=== PATIENT | female | born 2000 | race Two or more races ===

== ENCOUNTER 2024-08-07 12:25 | Inpatient (IN) | payer MEDICAID, OTHER ==
[~2024-08-07] VITALS: Ht 149.9 cm; Wt 45.0 kg
--- NOTE | 2024-08-07 12:41 | ED.PDOC ---
History of Present Illness HPI Comments 23y F who presents to the ED for chief complaint of palpitations. Pt states she has been having palpitations this AM after episode of nausea and vomiting. Pt states she has been having nausea, vomiting, fever and chills for the past 1 week. Pt states she checked her heart rate at home and states it was in the 160's. Pt in the ED, has heart rate of 143 with all other vitals in normal range. Pt otherwise denies any other symptoms at this time. Patient does not use any drugs. No known thyroid disease history. Patient was states that her brother has a history of an enlarged heart and her father at the age of 46 due to a heart attack. 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 Hx Family History Family History: Unknown Social History Smoker: Non-Smoker Alcohol: Denies ETOH Use Drugs: Marijuana Lives In: Home Constitutional: reports: chills, fever; denies: diaphoresis, fatigue, malaise, sweats, weakness, others EENTM: denies: blurred vision, double vision, ear bleeding, ear discharge, ear drainage, ear pain, ear ringing, eye pain, eye redness, hearing loss, mouth pain, mouth swelling, nasal discharge, nose bleeding, nose congestion, nose pain, photophobia, tearing, throat pain, throat swelling, voice changes, others Respiratory: denies: cough, hemoptysis, orthopnea, SOB at rest, shortness of breath, SOB with excertion, stridor, wheezing, others Cardiovascular: reports: palpitations; denies: chest pain, dizzy spells, diaphoresis, Dyspnea on exertion, edema, irregular heart beat, left arm pain, lightheadedness, PND, syncope, others Gastrointestinal: reports: nausea, vomiting; denies: abdomen distended, abdominal pain, blood streaked bowels, constipated, diarrhea, dysphagia, difficulty swallowing, hematemesis, melena, poor appetite, poor fluid intake, rectal bleeding, rectal pain, others Genitourinary: denies: abnormal vagina bleeding, burning, dyspareunia, dysuria, flank pain, frequency, hematuria, incontinence, pain, , vagina discharge, urgency, others Neurological: denies: dizziness, fainting, headache, left sided numbness, left sided weakness, numbness, paresthesia, pre-existing deficit, right sided n umbness, right sided weakness, seizure, speech problems, tingling, tremors, weakness, others Musculoskeletal: denies: back pain, gout, joint pain, joint swelling, muscle pain, muscle stiffness, neck pain, others Integumetry: denies: bruises, change in color, change in hair/nails, dryness, laceration, lesions, lumps, rash, wounds, others Allergic/Immunocompromised: denies: Difficulty Healing, Frequent Infections, Hives, Itching, others Hematologic/Lymphatic: denies: anemia, blood clots, easy bleeding, easy bruising, swollen glands, others Endocrine: denies: excessive hunger, excessive sweating, excessive thirst, excessive urination, flushing, intolerance to cold, intolerance to heat, unexplained weight gain, unexplained weight loss, others Psychiatric: denies: anxiety, bipolar disorder, depression, hopeless, panic disorder, schizophrenia, sleepless, suicidal, others All Other Systems: Reviewed and Negative Physical Exam General Appearance: No Apparent Distress, Normal HEENT: Normal ENT Inspection, Pharynx Normal, TMs Normal Neck: Full Range of Motion, Non-Tender, Normal, Normal Inspection Respiratory: Chest Non-Tender, Lungs Clear, No Accessory Muscle Use, No Respiratory Distress, Normal Breath Sounds Cardiovascular: No Edema, No Murmur, No Gallop, Normal Peripheral Pulses, Tachycardia Breast Exam: Deferred Gastrointestinal: No Organomegaly, Non Tender, No Pulsatile Mass, Normal Bowel Sounds, Soft Genitalia: Deferred Pelvic: Deferred Rectal: Deferred Extremities: No calf tenderness, Normal capillary refill, Normal inspection, Normal range of motion, Non-tender, No pedal edema Musculoskeletal : Apperance: Normal Neurologic: Alert, mortar carrier II-XII nml as Tested, No Motor Deficits, Normal Affect, Normal Mood, No Sensory Deficits Cerebellar Function: NOT DONE Reflexes: NOT DONE Skin: Dry, Normal Color, Warm Lymphatic: No Adenopathy Was a procedure done? Was a procedure done?: No EKG EKG : Pulse Rate (adult): 129 [place]: Normal Cardiac Rhythm: ST Block: None Hypertrophy: None ST: Normal Comments Evidence of diffuse ischemia across all territories with mild ST depressions Differential Dx Considerations may include: Myocarditis, pericardial effusion, tamponade, ACS, PE, pericarditis, anxiety X-Ray, Labs, Meds, VS Vital Signs Date Time Temp Pulse Resp B/P (MAP) Pulse Ox O2 Delivery O2 Flow Rate FiO2 08/07/24 18:43 98.1 126 16 120/78 (92) 96 98.1 08/07/24 18:42 98.1 126 16 121/83 (96) 96 98.1 08/07/24 18:30 133 08/07/24 16:18 97.1 136 16 121/83 (96) 96 97.1 08/07/24 13:28 130 08/07/24 13:24 129 08/07/24 12:46 99.0 20 20 118/83 (95) 99 Lab Test 08/07/24 15:54 08/07/24 13:52 08/07/24 12:59 Range/Units Sodium Level 138 138 136-145 mmol/L Potassium Level 3.4 L 3.5 3.5-5.1 mmol/L Chloride Level 102 103 98-107 mmol/L Carbon Dioxide Level 17 L 19 L 20-31 mmol/L Anion Gap 19 H 16 H 5-15 Blood Urea Nitrogen 8 L 8 L 9-23 mg/dL Creatinine 0.76 0.88 0.550-1.02 mg/dL Glomerular Filtration Rate Calc 114 95 >90 mL/min BUN/Creatinine Ratio 10.5 9.1 L 10.0-20.0 Serum Glucose 69 L 93 74-106 mg/dL Lactic Acid Level 1.0 2.3 *H 0.4-2.0 mmol/L Calcium Level 10.6 H 10.8 H 8.7-10.4 mg/dL Troponin I High Sensitivity 7 6 5 </=34 ng/L White Blood Count 7.8 4.4-10.8 10^3/uL Red Blood Count 5.31 H 4.0-5.20 10^6/uL Hemoglobin 16.6 H 12.2-16.2 g/dL Hematocrit 48.7 H 36.0-46.0 % Mean Corpuscular Volume 91.7 80.0-100.0 fL Mean Corpuscular Hemoglobin 31.2 28.0-32.0 pg Mean Corpuscular Hemoglobin Concent 34.1 32.0-36.0 g/dL Red Cell Distribution Width 12.8 11.8-14.3 % Platelet Count 283 140-450 10^3/uL Mean Platelet Volume 8.2 6.9-10.8 fL Neutrophils (%) (Auto) 61.7 37.0-80.0 % Lymphocytes (%) (Auto) 28.7 10.0-50.0 % Monocytes (%) (Auto) 7.7 0.0-12.0 % Eosinophils (%) (Auto) 1.5 0.0-7.0 % Basophils (%) (Auto) 0.4 0.0-2.0 % Neutrophils # (Auto) 4.8 1.6-8.6 10 ^3/uL Lymphocytes # (Auto) 2.2 0.4-5.4 10 ^3/uL Monocytes # (Auto) 0.6 0-1.3 10 ^3/uL Eosinophils # (Auto) 0.1 0-0.8 10 ^3/uL Basophils # (Auto) 0 0-0.2 10 ^3/uL Nucleated Red Blood Cells 0.0 % D-Dimer, Quantitative < 0.19 0.0-0.49 mg/L FEU Total Bilirubin 1.2 H 0.2-1.0 mg/dL Aspartate Amino Transferase (AST) 21 13-40 U/L Alanine Aminotransferase (ALT) 13 7-40 U/L Alkaline Phosphatase 85 46-116 U/L C-Reactive Protein High Sensitivity 0.20 <1.0 mg/dL B-Type Natriuretic Peptide 6.01 0-100 pg/mL Total Protein 8.5 H 5.7-8.2 g/dL Albumin 5.1 H 3.2-4.8 g/dL Thyroid Stimulating Hormone (TSH) 0.69 0.55-4.78 uIU/mL Current Medications Medications (Trade) Dose Ordered Sig/Alonzo Route Start Time Stop Time Status Last Admin Potassium Chloride (Klor-Con Tablet) 20 meq ONCE ONCE PO 08/07/24 18:15 08/07/24 18:16 DC 08/07/24 18:[address] [address] Ph: [phone] DIAGNOSTIC IMAGING Diagnostic Imaging Report : [id number] Signed PATIENT: PEPE PALACIO ACCT: [id number] UNIT: [id number] : 2000 LOC: ER ROOM / BED: / AGE / SEX: 23 / F ADM STATUS: REG ER SERVICE 1230 ORDERING PHYSICIAN: ANA PAULA TEE MD PROCEDURE(s): CXRP - CHEST PORTABLE REASON: PALPATATIONS ORDER NUMBER(s): [id number], ACCESSION NUMBER(s): [id number] CHEST RADIOGRAPH Indication: PALPATATIONS Technique: Single frontal view of the chest was obtained Comparison: None FINDINGS: Lines and Tubes: None Lungs: No focal consolidation. Pleura: No effusion. No pneumothorax. Cardiomediastinal contours: Unremarkable Bones: No acute osseous abnormality. IMPRESSION: No acute cardiopulmonary disease. ATED BY: JUSTIN LANDERS MD DICTATED DATE/TIME: 08/07/24 1302 SIGNED BY: JUSTIN LANDERS MD SIGNED DATE/TIME: 08/07/24 1302 CC: X-Ray, Labs, Meds, VS Comment 23-year-old female with no pertinent medical history and without recent stimulant use here today with complaints of palpitations, nausea, and vomiting. Family history significant for father passing away at age 46 due to a heart attack and brother with an "enlarged heart. Vitals notable for persistent tachycardia to the 120s despite oral rehydration and IV saline. Physical exam with evidence of tachycardia but otherwise unremarkable. Labs overall reassuring with evidence of negative D-dimer and negative troponin and only mild hypokalemia and hypoglycemia which were treated with oral potassium supplementation and eating a snack. EKGs x3 with evidence of persistent tachycardia and evidence of diffuse ST depressions. Given this presentation, I have a concern for myocarditis or other cardiac process and, after discussion with the patient and her mother, decision was made to admit the patient for further evaluation and for an echo. Patient and mother in agreement with the plan. Images Reviewed?: Images reviewed and evaluated by me Time of 1ST Reevaluation: 13:10 Reevaluation 1ST: Unchanged Time of 2ND Reevaluation: 19:28 Reevaluation 2ND: Tachycardic to the 110s Patient Education/Counseling: Diagnosis, Treatment Family Education/Counseling: No Family Present Departure 1 Departure Time of Disposition: 19:28 Impression: Primary Impression: Palpitation Additional Impressions: Tachycardia Hypokalemia Hypoglycemia Disposition: ADMITTED INPATIENT Admit to: Tele Condition: Stable Critical Care Note Critical Care Time?: Yes (30 min-critical care time only) Stability Stability form required: No Heart Score Heart Score: Heart Score Response (Comments) Value History Slightly Suspicious 0 EKG Normal 0 Age <45 0 Risk Factors No known risk factors 0 Troponin Normal limit 0 Total 0 I personally scribed for ER ([email or web address]) on 08/07/24 at 13:24. Electronically submitted by Aroldo Blair ([email or web address]). TAVARES GONZALES MD Aug 07, 2024 12:41 ER Aug 07, 2024 13:24
--- NOTE | 2024-08-07 13:04 | DVH ---
CHEST RADIOGRAPH Indication: PALPATATIONS Technique: Single frontal view of the chest was obtained Comparison: None FINDINGS: Lines and Tubes: None Lungs: No focal consolidation. Pleura: No effusion. No pneumothorax. Cardiomediastinal contours: Unremarkable Bones: No acute osseous abnormality. IMPRESSION: No acute cardiopulmonary disease.
[2024-08-07 13:12] LABS: Basophils # (auto) 0 10 ^3/uL (0-0.2); Basophils % (auto) 0.4 % (0.0-2.0); Eosinophils # (auto) 0.1 10 ^3/uL (0-0.8); Eosinophils % (auto) 1.5 % (0.0-7.0); Hematocrit 48.7 % (36.0-46.0); Hemoglobin 16.6 g/dL (12.2-16.2); Lymphocytes # (auto) 2.2 10 ^3/uL (0.4-5.4); Lymphocytes % (auto) 28.7 % (10.0-50.0); Mean Corpuscular Hemoglobin 31.2 pg (28.0-32.0); Mean Corpuscular Hgb Conc. 34.1 g/dL (32.0-36.0); Mean Corpuscular Volume 91.7 fL (80.0-100.0); Monocytes # (auto) 0.6 10 ^3/uL (0-1.3); Monocytes % (auto) 7.7 % (0.0-12.0); Neutrophils # (auto) 4.8 10 ^3/uL (1.6-8.6); Neutrophils % (auto) 61.7 % (37.0-80.0); Platelet Count (auto) 283 10^3/uL (140-450); Red Blood Cells 5.31 10^6/uL (4.0-5.20); Red Cell Distribution Width 12.8 % (11.8-14.3); White Blood Cell 7.8 10^3/uL (4.4-10.8)
[2024-08-07 13:35] LABS: Alanine Aminotransferase 13 U/L (7-40); Alkaline Phosphatase 85 U/L (46-116); Anion Gap 16 (5-15); BUN/Creatinine Ratio 9.1 (10.0-20.0); Chloride 103 mmol/L (98-107); Glucose 93 mg/dL (74-106); Sodium 138 mmol/L (136-145)
[2024-08-07 13:36] LABS: Aspartate Aminotransferase 21 U/L (13-40)
[2024-08-07 13:37] LABS: Bilirubin, Total 1.2 mg/dL (0.2-1.0)
[2024-08-07 13:45] LABS: Lactic Acid w/Reflex 2.3 mmol/L (0.4-2.0)
[2024-08-07 13:47] LABS: Albumin 5.1 g/dL (3.2-4.8); Blood Urea Nitrogen 8 mg/dL (9-23); Calcium 10.8 mg/dL (8.7-10.4); Carbon Dioxide 19 mmol/L (20-31); Potassium 3.5 mmol/L (3.5-5.1); Total Protein 8.5 g/dL (5.7-8.2)
[2024-08-07 17:00] LABS: Anion Gap 19 (5-15); BUN/Creatinine Ratio 10.5 (10.0-20.0); Blood Urea Nitrogen 8 mg/dL (9-23); Calcium 10.6 mg/dL (8.7-10.4); Carbon Dioxide 17 mmol/L (20-31); Chloride 102 mmol/L (98-107); Glucose 69 mg/dL (74-106); Potassium 3.4 mmol/L (3.5-5.1); Sodium 138 mmol/L (136-145)
[2024-08-07] MEDS: POTASSIUM CHL 20 Meq TABLET PO ONE (18:38)
--- NOTE | 2024-08-07 18:51 | ECG ---
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
[2024-08-07] MEDS: SODIUM CHLORIDE 0.9% 1,000 ML IV ONE (19:30)
[2024-08-07 20:58] LABS: Magnesium 1.8 mg/dL (1.6-2.6)
[2024-08-07 21:00] LABS: Phosphorus 3.2 mg/dL (2.4-5.1)
[2024-08-07] MEDS ORDERED: ONDANSETRON HCL 4 MG/2 ML VIAL IV PRN (21:15)
[2024-08-07] MEDS ORDERED: ACETAMINOPHEN 325 MG TAB PO PRN (21:15)
[2024-08-07 21:53] LABS: Triglycerides 68 mg/dL (< 150)
[2024-08-07 21:54] LABS: Cholesterol 176 mg/dL (< 200); HDL Cholesterol 56 mg/dL (40-59)
[2024-08-07 21:57] LABS: LDL Cholesterol 109 mg/dL (< 100)
--- NOTE | 2024-08-07 22:17 | DVHHPRES ---
History of Present Illness Resident Creating Document: CORINNE CARDENAS History of Present Illness This is a 23-year-old female with no past medical history of relevance per patient. She does reports that from his that family they all were diabetic, his dad at the age of 46 due to a heart attack and his brother, who is 30 years old has a history of enlarged heart and hypertension. The patient presented to the ED due to palpitations that has been going on for the past week. The patient also reports nausea/vomiting, fever and chills. The patient states that these symptoms started 5 days ago along with the palpitations. Today patient has no symptoms but still has persistent sinus tachycardia. Patient states that she checked her heart rate at home and it was in the 140s. Patient does accept that her uncle had a stomach viral infection two weeks ago and she was in close contact with her. Patient denied chest pain, shortness of breath, abdominal pain, or any other associated symptoms. Upon admission, initial labs were grossly unremarkable except for mild hypokalemia at 3.4. Troponins were negative, BNP on normal range an EKG was showing sinus tachycardia in the 130s on three different EKGs. We ordered urine drug screen, flu/COVID test and additional test. Palpitation seems to be related to dehydration/vital infection but we will admit the patient to perform an echocardiogram based on strong family heart issues first-degree family members. Patient will be admitted for further assessment and management. Past Medical History None Per patient. Past Surgical History: None Family History: Other (Father due to heart attack at 46 years of age. 30-year-old Brother has a enlarged heart associated with hypertension) Family History Father due to heart attack at 46 years of age. 30-year-old Brother has a enlarged heart associated with hypertension Smoke: No ALCOHOL: none Drugs: Marijuana Lives: with Family Domestic Violence: Neg Review of Systems Constitutional: No: Fever, Chills, Sweats, Weakness, Malaise, Other Eyes: No: Pain, Vision change, Conjunctivae inflammation, Eyelid inflammation, Other, Redness ENT: No: Ear pain, Ear discharge, Nose pain, Nose discharge, Nose congestion, Mouth pain, Mouth swelling, Throat pain, Throat swelling, Other Respiratory: No: Cough, Dry, Shortness of breath, SOB with excertion, Wheezing, Hemoptysis, Pleuritic Pain, Sputum, Wheezing, Other Cardiovascular: Palpitations; No: Chest Pain, Orthopnea, Paroxysmal Noc. Dyspnea, Edema, Lt Headedness, Other Gastrointestinal: No: Nausea, Vomiting, Abdominal Pain, Diarrhea, Constipation, Melena, Hematochezia, Other Genitourinary: No Dysuria, No Frequency, No Incontinence, No Hematuria, No Retention, No Other Musculoskeletal: No: other, neck pain, shoulder pain, arm pain, back pain, hand pain, leg pain, foot pain Skin: No: Rash, Lesions, Jaundice, Bruising, Other Neurological: No: Weakness, Numbness, Incoordination, Change in speech, Confusion, Seizures, Other Allergies: Coded Allergies: NO KNOWN ALLERGIES (Unverified , 08/07/24) Exam Vital Signs Vital Signs Date Time Temp Pulse Resp B/P (MAP) Pulse Ox O2 Delivery O2 Flow Rate FiO2 08/07/24 18:43 98.1 126 16 120/78 (92) 96 98.1 General Appearance: Alert, Oriented X3, Cooperative, No acute distress HEENT: Atraumatic, PERRLA, EOMI, Mucous membr. moist/pink Respiratory: Clear to auscultation, Normal air movement Cardiovascular: Normal S1, Normal S2, No murmurs, Other (Persistent sinus tachycardia at 130s) Abdominal: Normal bowel sounds, Soft, No tenderness, No hepatospenomegaly, No masses Extremities: No clubbing, No cyanosis, No edema, Normal pulses, No tenderness/swelling Skin: No rashes, No breakdown, No significant lesion Neuro: Normal gait, Normal speech, Strength at 5/5 X4 ext, Normal tone, Sensation intact, Cranial nerves 3-12 NL, Reflexes 2+ Psych/Mental Status: Mental status NL, Mood NL Labs/Xrays Labs Test 08/07/24 15:54 08/07/24 12:59 Range/Units Sodium Level 138 136-145 mmol/L Potassium Level 3.4 L 3.5-5.1 mmol/L Chloride Level 102 98-107 mmol/L Carbon Dioxide Level 17 L 20-31 mmol/L Anion Gap 19 H 5-15 Blood Urea Nitrogen 8 L 9-23 mg/dL Creatinine 0.76 0.550-1.02 mg/dL Glomerular Filtration Rate Calc 114 >90 mL/min BUN/Creatinine Ratio 10.5 10.0-20.0 Serum Glucose 69 L 74-106 mg/dL Lactic Acid Level 1.0 0.4-2.0 mmol/L Calcium Level 10.6 H 8.7-10.4 mg/dL Phosphorus Level 3.2 2.4-5.1 mg/dL Magnesium Level 1.8 1.6-2.6 mg/dL Troponin I High Sensitivity 7 </=34 ng/L White Blood Count 7.8 4.4-10.8 10^3/uL Red Blood Count 5.31 H 4.0-5.20 10^6/uL Hemoglobin 16.6 H 12.2-16.2 g/dL Hematocrit 48.7 H 36.0-46.0 % Mean Corpuscular Volume 91.7 80.0-100.0 fL Mean Corpuscular Hemoglobin 31.2 28.0-32.0 pg Mean Corpuscular Hemoglobin Concent 34.1 32.0-36.0 g/dL Red Cell Distribution Width 12.8 11.8-14.3 % Platelet Count 283 140-450 10^3/uL Mean Platelet Volume 8.2 6.9-10.8 fL Neutrophils (%) (Auto) 61.7 37.0-80.0 % Lymphocytes (%) (Auto) 28.7 10.0-50.0 % Monocytes (%) (Auto) 7.7 0.0-12.0 % Eosinophils (%) (Auto) 1.5 0.0-7.0 % Basophils (%) (Auto) 0.4 0.0-2.0 % Neutrophils # (Auto) 4.8 1.6-8.6 10 ^3/uL Lymphocytes # (Auto) 2.2 0.4-5.4 10 ^3/uL Monocytes # (Auto) 0.6 0-1.3 10 ^3/uL Eosinophils # (Auto) 0.1 0-0.8 10 ^3/uL Basophils # (Auto) 0 0-0.2 10 ^3/uL Nucleated Red Blood Cells 0.0 % D-Dimer, Quantitative < 0.19 0.0-0.49 mg/L FEU Total Bilirubin 1.2 H 0.2-1.0 mg/dL Aspartate Amino Transferase (AST) 21 13-40 U/L Alanine Aminotransferase (ALT) 13 7-40 U/L Alkaline Phosphatase 85 46-116 U/L C-Reactive Protein High Sensitivity 0.20 <1.0 mg/dL B-Type Natriuretic Peptide 6.01 0-100 pg/mL Total Protein 8.5 H 5.7-8.2 g/dL Albumin 5.1 H 3.2-4.8 g/dL Thyroid Stimulating Hormone (TSH) 0.69 0.55-4.78 uIU/mL Assessment/Plan Assessment/Plan Assessment/Plan Acute palpitations/Sinus tachycardia likely in the setting of viral illness/dehydration R/O structural heart abnormalities R/O myocarditis? -Patient has strong family history of heart disease. Dad at 46 y/o due to ID, Brother (30 y/o) has dilated cardiomyopathy with HTN. -EKG showed sinus tachycardia in 3 different EKGs with No ST segment elevation. -Trops came back negative -BNP is 6.01 -Chest x ray was grossly unremarkable no signs of consolidations or pulm vasc congestion -Ordered UDS -Ordered Echocardiogram -Consider consulting Cardiology for further assessment of possible etiology if patient persist on sinus tachy despite of fluid therapy. Possible Viral gastroenteritis -Patient with persistent Nausea/vomit and fever. Last episode 1 day ago -Start IV fluids at 75cc/hr -Zofran IV PRN Mild hypokalemia -Potassium 3.4, 20 mEq was given Goals discussed with the patient and mother at bedside, FULL CODE Plan discussed with Dr. Limon Plan discussed with: Patient My Orders Orders - CORINNE CARDENAS Procedure Category Date Status Time Free T4 (Free LAB 08/07/24 Logged Thyroxine) 20:59 Drug Screen LAB 08/07/24 Logged 20:59 Urinalysis LAB 08/07/24 Logged 20:59 Admit ADMIT 08/07/24 Transmitted 21:01 Code Status CODE 08/07/24 Transmitted 21:01 Vital Signs SAAD 08/07/24 In Process 21:01 Review Orders With SAAD 08/07/24 In Process Adm. 21:01 Regular Diet DIET 08/08/24 Transmitted Breakfast Acetaminophen Tablet PHA 08/07/24 Logged (Tylenol Tablet) 21:15 Notify Of Changes SAAD 08/07/24 In Process From Base 21:01 Advance Directive SAAD 08/07/24 In Process 21:01 Echo 2d Mode Cardiac US 1/8/25 Logged DOP 21:01 Lipid Panel LAB 08/07/24 Logged 21:01 Patient Condition ORDERS 08/07/24 Transmitted 21:01 Allergies SAAD 08/07/24 In Process 21:01 Ondansetron Hcl PHA 08/07/24 Logged (Zofran) 21:15 Ambulate Every 4hours SAAD 08/07/24 In Process 21:01 Hemoglobin A1c LAB 08/07/24 Logged 21:01 Date of Service: Aug 07, 2024 Billing Provider: WALTER LIMON MD Common Visit Codes: [id number] INP/OBS CARE (HIGH) CORINNE CARDENAS RESIDENT Aug 07, 2024 22:16 WALTER LIMON MD Aug 08, 2024 17:45
[2024-08-08 00:07] VITALS: BP 130/75; PULSE 104; RESP 18; TEMP 97.5; O2SAT 97
[2024-08-08 00:20] VITALS: RESP 18; O2SAT 98
[2024-08-08] MEDS: SODIUM CHLORIDE 0.9% 1,000 ML IV ONE (00:42)
[2024-08-08 07:39] LABS: Urine Amorphous Crystal FEW /hpf (None Seen); Urine Bacteria FEW /hpf (None Seen); Urine Blood 1+ /uL (Negative); Urine Color Yellow (Yellow); Urine Mucus FEW (None Seen); Urine Protein, UAD 2+ (Negative); Urine Specific Gravity 1.032 (1.001-1.035); Urine Squamous Epithelial Cell FEW /hpf (<5); Urine Urobilinogen 3 mg/dL (Negative); Urine WBC 4 /hpf (0 - 5); Urine pH 6.5 (5.0-9.0)
[2024-08-08 07:42] LABS: Urine Clarity Hazy (Clear)
[2024-08-08 07:50] LABS: Amphetamine Screen, Urine Neg (NEGATIVE); Barbiturate Scree,Urine Neg (NEGATIVE); Benzodiazephine Screen, Urine Neg (NEGATIVE); Cannabinoid Screen, Urine Pos (NEGATIVE); Cocaine Screen, Urine Neg (NEGATIVE); Opiate Scree,Urine Neg (NEGATIVE); Phencyclidine Screen, Urine Neg (NEGATIVE)
[2024-08-08 08:46] VITALS: BP 117/68; PULSE 90; RESP 16; TEMP 99.3; O2SAT 97
[2024-08-08 11:32] LABS: Rapid Influenza A Negative (Negative); Rapid Influenza B Negative (Negative)
[2024-08-08 11:33] LABS: COVID19 ANTIGEN SOFIA FIA NEGATIVE (NEGATIVE)
[2024-08-08 12:44] VITALS: BP 111/70; PULSE 102; RESP 19; TEMP 99.1
--- NOTE | 2024-08-08 15:01 | DVHSR ---
APPROVED REPORT EXAM: Two-dimensional and M-mode echocardiogram with Doppler and color Doppler. Blood Pressure: 130/75 mmHg INDICATION R/O structral abnormalities RISK FACTORS Height: 4'11", Weight: 99 DIMENSIONS LVDd4.0 (3.8-5.7cm)LA (2D)2.4 (1.9-4.0cm)Aortic Root2.4 (2.0-3.7cm) LVDs2.8 (2.5-4.0cm)LA (MM) (1.9-4.0cm)Aortic Cusp Exc1.6 (1.5-2.0cm) EF (%) 60.0 (55-70%)Rt. Atrium2.6 (1.9-4.0cm)Asc. Aorta cm IVSd0.7 (0.7-1.1cm)RV (D)2.7 (1.8-2.4cm) PWd0.7 (0.7-1.1cm) Mitral Valve MitralMitral Stenosis E wave0.81m/sMV Mean GR.mmHg A wave0.61m/sMV Peak GR.mmHg E/A ratio1.32D MVAcm2 DECEL [id number] 1/2 Timems Aortic Valve Aortic ValveAortic Stenosis V10.90m/Clementina Mean GR.4mmHg V21.27m/Clementina Peak GR.6mmHg LVOT Diameter1.7 (1.8-2.4cm)Doppler AVA1.61cm2 Pulmonic Valve V20.92m/s LEFT VENTRICLE The left ventricle is of normal size. Left ventricular wall thickness is normal. Ejection fraction is normal and is estimated at 60%. There is no regional wall motion abnormalities. Diastolic functi on is normal. E to E prime ratio is in the normal range. RIGHT VENTRICLE The right ventricle is of normal size. Right ventricular systolic function is normal. ATRIA Both atria are of normal size. Not well visualized. MITRAL VALVE Mitral valve is normal in its structure and mobility. No significant regurgitation. PULMONIC VALVE Likely normal. TRICUSPID VALVE Normal structure and function. There is trace tricuspid regurgitation. PA systolic pressure is not adequately estimated. AORTIC VALVE Normal structure and function. GREAT VESSELS The aortic root is of normal size. Proximal ascending aorta is not visualized. PERICARDIAL EFFUSION There is no pericardial effusion. IVC is of normal size and collapses normally with inspiration. Other Information Quality : Technically LimitedRhythm : Technically limited study due to body habitus. Conclusion Normal left ventricular size and systolic function. Ejection fraction is estimated at 60%. Normal right ventricular size and systolic function. No hemodynamically significant valvular disease. PA systolic pressure is not adequately estimated. No pericardial effusion.
[2024-08-08 16:05] VITALS: TEMP 37.3
--- NOTE | 2024-08-08 18:16 | DVHDSRES ---
Discharge Summary Date of Admission Resident Creating Document: MIRTA DELEON RESIDENT Aug 07, 2024 at 21:01 Date of Discharge: Aug 08, 2024 Admitting Diagnosis Acute palpitations/Sinus tachycardia likely in the setting of viral illness/dehydration Structural heart abnormalities was ruled out Myocardial this was ruled out Intractable nausea and vomiting likely due to Viral gastroenteritis, resolved Mild hypokalemia, resolved Labs/Diagnostic Data: Laboratory Results Test 08/08/24 10:30 08/08/24 06:30 08/07/24 21:14 08/07/24 15:54 Influenza Type A Antigen Negative (Negative) Influenza Type B Antigen Negative (Negative) SARS-CoV-2 Antigen (Rapid) Negative (NEGATIVE) Urine Color Yellow (Yellow) Urine Clarity Hazy (Clear) Urine pH 6.5 (5.0-9.0) Urine Specific [place] 1.032 (1.001-1.035) Urine Protein 2+ (Negative) Urine Ketones 4+ (Negative) Urine Blood 1+ /uL (Negative) Urine Nitrite Negative (Negative) Urine Bilirubin Negative (Negative) Urine Urobilinogen 3 mg/dL (Negative) Urine Leukocyte Esterase Negative /uL (Negative) Urine RBC 8 /hpf (0 - 4) Urine WBC 4 /hpf (0 - 5) Urine Squamous Epithelial Cells Few /hpf (<5) Urine Calcium Oxalate Crystals Mod (None Seen) Urine Amorphous Crystals Few /hpf (None Seen) Urine Bacteria Few /hpf (None Seen) Urine Mucus Few (None Seen) Urine Glucose Normal mg/dL (Normal) Urine Test Negative (Negative) Urine Opiates Screen Neg (NEGATIVE) Urine Fentanyl Screen Neg (NEGATIVE) Urine Barbiturates Screen Neg (NEGATIVE) Urine Phencyclidine Screen Neg (NEGATIVE) Urine Amphetamines Screen Neg (NEGATIVE) Urine Benzodiazepines Screen Neg (NEGATIVE) Urine Cocaine Screen Neg (NEGATIVE) Urine Cannabinoids Screen Pos (NEGATIVE) Potassium Level 3.7 mmol/L (3.5-5.1) Hemoglobin A1c 5.2 % A1C (<5.7) Triglycerides Level 68 mg/dL (< 150) Cholesterol Level 176 mg/dL (< 200) LDL Cholesterol 109 mg/dL (< 100) HDL Cholesterol 56 mg/dL (40-59) Free Thyroxine (T4) Calculated 1.21 ng/dL (0.89-1.76) Sodium Level 138 mmol/L (136-145) Chloride Level 102 mmol/L (98-107) Carbon Dioxide Level 17 mmol/L (20-31) Anion Gap 19 (5-15) Blood Urea Nitrogen 8 mg/dL (9-23) Creatinine 0.76 mg/dL (0.550-1.02) Glomerular Filtration Rate Calc 114 mL/min (>90) BUN/Creatinine Ratio 10.5 (10.0-20.0) Serum Glucose 69 mg/dL (74-106) Lactic Acid Level 1.0 mmol/L (0.4-2.0) Calcium Level 10.6 mg/dL (8.7-10.4) Phosphorus Level 3.2 mg/dL (2.4-5.1) Magnesium Level 1.8 mg/dL (1.6-2.6) Troponin I High Sensitivity 7 ng/L (</=34) Test 08/07/24 12:59 White Blood Count 7.8 10^3/uL (4.4-10.8) Red Blood Count 5.31 10^6/uL (4.0-5.20) Hemoglobin 16.6 g/dL (12.2-16.2) Hematocrit 48.7 % (36.0-46.0) Mean Corpuscular Volume 91.7 fL (80.0-100.0) Mean Corpuscular Hemoglobin 31.2 pg (28.0-32.0) Mean Corpuscular Hemoglobin Concent 34.1 g/dL (32.0-36.0) Red Cell Distribution Width 12.8 % (11.8-14.3) Platelet Count 283 10^3/uL (140-450) Mean Platelet Volume 8.2 fL (6.9-10.8) Neutrophils (%) (Auto) 61.7 % (37.0-80.0) Lymphocytes (%) (Auto) 28.7 % (10.0-50.0) Monocytes (%) (Auto) 7.7 % (0.0-12.0) Eosinophils (%) (Auto) 1.5 % (0.0-7.0) Basophils (%) (Auto) 0.4 % (0.0-2.0) Neutrophils # (Auto) 4.8 10 ^3/uL (1.6-8.6) Lymphocytes # (Auto) 2.2 10 ^3/uL (0.4-5.4) Monocytes # (Auto) 0.6 10 ^3/uL (0-1.3) Eosinophils # (Auto) 0.1 10 ^3/uL (0-0.8) Basophils # (Auto) 0 10 ^3/uL (0-0.2) Nucleated Red Blood Cells 0.0 % D-Dimer, Quantitative < 0.19 mg/L FEU (0.0-0.49) Total Bilirubin 1.2 mg/dL (0.2-1.0) Aspartate Amino Transferase (AST) 21 U/L (13-40) Alanine Aminotransferase (ALT) 13 U/L (7-40) Alkaline Phosphatase 85 U/L (46-116) C-Reactive Protein High Sensitivity 0.20 mg/dL (<1.0) B-Type Natriuretic Peptide 6.01 pg/mL (0-100) Total Protein 8.5 g/dL (5.7-8.2) Albumin 5.1 g/dL (3.2-4.8) Thyroid Stimulating Hormone (TSH) 0.69 uIU/mL (0.55-4.78) Other Laboratory Tests 08/07/24 21:14 08/07/24 15:54 08/07/24 12:59 Brief Hx & Hospital Course: HPI: This is a 23-year-old female with past medical history of drug abuse, marijuana use who came to the emergency department with a chief complaint of nausea and vomiting, fevers and chills for the past 5 days along with the palpitations. Hospital course: She does reports that from his that family they all were diabetic, his dad at the age of 46 due to a heart attack and his brother, who is 30 years old has a history of enlarged heart and hypertension. During my evaluation patient has no symptoms but still has persistent sinus tachycardia. Patient states that she checked her heart rate at home and it was in the 140s. Patient does accept that her uncle had a stomach viral infection two weeks ago and she was in close contact with her. Patient denied chest pain, shortness of breath, abdominal pain, or any other associated symptoms. Upon admission, initial labs were grossly unremarkable except for mild hypokalemia at 3.4. Troponins were negative, BNP on normal range an EKG was showing sinus tachycardia in the 130s on three different EKGs. We ordered urine drug screen, flu/COVID test and additional test. Palpitation seems to be related to dehydration/vital infection but we will admit the patient to perform an echocardiogram based on strong family heart issues first-degree family members. Echocardiogram was unremarkable. Heart rate went back to sinus rhythm. Patient was discharged safely with the following recommendations to follow-up with her primary care doctor within 2 weeks. Disposition: Patient is stable for discharge to home. Case discussed with Dr. Stubbs Goals of care discussed with the patient for 31 minutes. Operations or Procedures [place] [address] Ph: [phone] DIAGNOSTIC IMAGING Diagnostic Imaging Report : [id number] Signed PATIENT: PEPE PALACIO ACCT: [id number] UNIT: [id number] : 2000 LOC: ER ROOM / BED: / AGE / SEX: 23 / F ADM STATUS: REG ER SERVICE 1230 ORDERING PHYSICIAN: ANA PAULA TEE MD PROCEDURE(s): CXRP - CHEST PORTABLE REASON: PALPATATIONS ORDER NUMBER(s): [id number], ACCESSION NUMBER(s): [id number] CHEST RADIOGRAPH Indication: PALPATATIONS Technique: Single frontal view of the chest was obtained Comparison: None FINDINGS: Lines and Tubes: None Lungs: No focal consolidation. Pleura: No effusion. No pneumothorax. Cardiomediastinal contours: Unremarkable Bones: No acute osseous abnormality. IMPRESSION: No acute cardiopulmonary disease. ATED BY: JUSTIN LANDERS MD DICTATED DATE/TIME: 08/07/24 1302 SIGNED BY: JUSTIN LANDERS MD SIGNED DATE/TIME: 08/07/24 1302 CC: [place] [address] Ph: [phone] DIAGNOSTIC IMAGING Diagnostic Imaging Report : [id number] Signed PATIENT: PEPE PALACIO ACCT: [id number] UNIT: [id number] : 2000 LOC: TELE ROOM / BED: [address] [place] [address] AGE / SEX: 23 / F ADM STATUS: ADM IN SERVICE 2101 ORDERING PHYSICIAN: CORINNE CARDENAS PROCEDURE(s): ECIDC - ECHO 2D MODE CARDIAC DOP REASON: R/O structural heart abnormalities ORDER NUMBER(s): [id number], ACCESSION NUMBER(s): [id number] APPROVED REPORT EXAM: Two-dimensional and M-mode echocardiogram with Doppler and color Doppler. Blood Pressure: 130/75 mmHg INDICATION R/O structral abnormalities RISK FACTORS Height: 4'11", Weight: 99 DIMENSIONS LVDd 4.0 (3.8-5.7cm) LA (2D) 2.4 (1.9-4.0cm) Aortic Root 2.4 (2.0- 3.7cm) LVDs 2.8 (2.5-4.0cm) LA (MM) (1.9-4.0cm) Aortic Cusp Exc 1.6 (1.5- 2.0cm) EF (%) 60.0 (55-70%) Rt. Atrium 2.6 (1.9-4.0cm) Asc. Aorta cm IVSd 0.7 (0.7-1.1cm) RV (D) 2.7 (1.8-2.4cm) PWd 0.7 (0.7-1.1cm) Mitral Valve Mitral Mitral Stenosis E wave 0.81m/s MV Mean GR. mmHg A wave 0.61m/s MV Peak GR. mmHg E/A ratio 1.3 2D MVA cm2 DECEL Time 126ms PRESS 1/2 Time ms Aortic Valve Aortic Valve Aortic Stenosis V1 0.90m/s AO Mean GR. 4mmHg V2 1.27m/s AO Peak GR. 6mmHg LVOT Diameter 1.7 (1.8-2.4cm) Doppler SVEN 1.61cm2 Pulmonic Valve V2 0.92m/s LEFT VENTRICLE The left ventricle is of normal size. Left ventricular wall thickness is normal. Ejection fraction is normal and is estimated at 60%. There is no regional wall motion abnormalities. Diastolic function is normal. E to E prime ratio is in the normal range. RIGHT VENTRICLE The right ventricle is of normal size. Right ventricular systolic function is normal. ATRIA Both atria are of normal size. Not well visualized. MITRAL VALVE Mitral valve is normal in its structure and mobility. No significant regurgitation. PULMONIC VALVE Likely normal. TRICUSPID VALVE Normal structure and function. There is trace tricuspid regurgitation. PA systolic pressure is not adequately estimated. AORTIC VALVE Normal structure and function. GREAT VESSELS The aortic root is of normal size. Proximal ascending aorta is not visualized. PERICARDIAL EFFUSION There is no pericardial effusion. IVC is of normal size and collapses normally with inspiration. Other Information Quality : Technically Limited Rhythm : Technically limited study due to body habitus. Conclusion Normal left ventricular size and systolic function. Ejection fraction is estimated at 60%. Normal right ventricular size and systolic function. No hemodynamically significant valvular disease. PA systolic pressure is not adequately estimated. No pericardial effusion. SIGNED BY: ANTONIO SULLIVAN MD SIGNED DATE/TIME: 08/08/24 1501 CC: Condition at Discharge: Fair Final Diagnosis/Problems List Acute palpitations/Sinus tachycardia likely in the setting of viral illness/dehydration Structural heart abnormalities was ruled out Myocardial this was ruled out Intractable nausea and vomiting likely due to Viral gastroenteritis, resolved Mild hypokalemia, resolved Discharge Disposition: Home SNF Discharge Will this Physician continue t: No Discharge Instruct/Medications Diet: Regular Activity: No Restrictions, As Tolerated Follow Up/Referral: follow up with PCP within 2 weeks Medications: no medications Discharge Statement: "Patient was advised to return to the ER or call 911 if any headaches, dizziness, shortness of breath, chest pain, abdominal pain, bleeding, fevers, or worsening of medical condition. Patient was counseled about treatment plan, medications, possible side effects, patientverbalized understanding. All questions were answered to the best of my ability. This discharge took greater then 30 minutes in planning, reviewing documentation, counseling the patient, and discussing with other team members." ASSESSMENT ASSESSMENT Assessment Acute palpitations/Sinus tachycardia likely in the setting of viral illness/dehydration Date of Service: Aug 08, 2024 Billing Provider: MANDO STUBBS MD Common Visit Codes: 56782-TUX/OBS DISCH DAY >30min MIRTA DELEON RESIDENT Aug 08, 2024 18:16 MANDO STUBBS MD Aug 08, 2024 18:57
--- NOTE | 2024-08-09 07:36 | ECG ---
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
--- NOTE | 2024-08-09 07:36 | ECG ---
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
== END 2024-08-08 16:43 | disposition home or self-care (01) | DRG 249 ==
LOC: ER 12:25 → TELE 21:01
PROVIDERS: ADMIT Internal Medicine Geriatric Medicine; ATTEND Internal Medicine Geriatric Medicine
DX: A08.4 Viral intestinal infection, unspecified (principal); I42.0 Dilated cardiomyopathy; E86.0 Dehydration; E78.5 Hyperlipidemia, unspecified; E87.6 Hypokalemia; Z20.822 Contact with and (suspected) exposure to COVID-19; E16.2 Hypoglycemia, unspecified; Z82.49 Family history of ischemic heart disease and other diseases of the circulatory system; Z63.4 Disappearance and death of family member
CPT/HCPCS: 36415; 71045; 80048; 80053; 80061; 80307; 81001; 81025; 83036; 83605; 83735; 83880; 84100; 84132; 84439; 84443; 84484; 85025; 85379; 86141; 87426; 87804; 93005; 93306; 99291; G0378